=== PATIENT | female | born 1995 | race Caucasian/White ===

== ENCOUNTER 2016-04-13 05:00 | Inpatient (IN) | payer MEDICAID ==
[~2016-04-13] VITALS: Ht 170.2 cm; Wt 95.7 kg
[2016-04-13] VITALS (14 sets, daily range): BP systolic 99–124; RESP 16; TEMP 97.5; Ht 170.2 cm; Wt 95.7 kg
[2016-04-13] MEDS ORDERED: BUTORPHANOL 1 MG/ML VIAL IV ONE (05:45)
[2016-04-13] MEDS ORDERED: OXYTOCIN 15 UNITS/250 ML NS 250 ML IV SCH ×2 (05:45→12:25)
[2016-04-13] MEDS ORDERED: CEFAZOLIN (LD/OB) 100 ML IV PRN (05:45)
[2016-04-13] MEDS ORDERED: FAMOTIDINE 20 MG INJ IV PRN (05:45)
[2016-04-13] MEDS ORDERED: ONDANSETRON 4 MG VIAL IV PRN (05:45)
[2016-04-13] MEDS ORDERED: TERBUTALINE 1 MG/ML VIAL SUBQ PRN (05:45)
[2016-04-13] MEDS ORDERED: METOCLOPRAMIDE 10 MG/2 ML VIAL IV PUSH PRN (05:45)
[2016-04-13] MEDS ORDERED: Flu Vaccine Quadrivalent 60 MCG/0.5 ML IM.VACC ONE (05:45)
[2016-04-13] MEDS ORDERED: ACETAMINOPHEN 325 MG TAB PO PRN (05:45)
[2016-04-13] MEDS ORDERED: PROMETHAZINE 25 MG/ML VIAL IV PRN (05:45)
[2016-04-13] MEDS ORDERED: LIDOCAINE 1% 30 ML PF INFILTRATE ONE (05:45)
[2016-04-13] MEDS ORDERED: ALU/MAG/SIM 30 ML UDC PO PRN (05:45)
[2016-04-13] MEDS ORDERED: FAMOTIDINE 20 MG TAB PO PRN (05:45)
[2016-04-13] MEDS: LACT RINGERS 1,000 ML IV SCH ×2 (06:32→08:26)
[2016-04-13] MEDS ORDERED: ROPIV/FENT 0.2%-2MCG/ML 100 ML EPIDURAL ONE (07:58)
[2016-04-13] MEDS ORDERED: FENTANYL 100 MCG/2 ML AMP ONE (07:59)
[2016-04-13] MEDS ORDERED: ROPIV/FENT 0.2%-2MCG/ML 100 ML EPIDURAL SCH (08:20)
[2016-04-13] MEDS ORDERED: FENTANYL 100 MCG/2 ML AMP EPIDURAL ONE (08:20)
[2016-04-13] MEDS ORDERED: LACT RINGERS 500 ML IV ONE (08:20)
[2016-04-13] MEDS ORDERED: LACT RINGERS 500 ML IV PRN (08:20)
[2016-04-13] MEDS ORDERED: SODIUM CHLORIDE 0.9% 500 ML IV PRN (08:20)
[2016-04-13] MEDS ORDERED: DERMOPLAST SPRAY TOPICAL PRN (12:25)
[2016-04-13] MEDS ORDERED: ZOLPIDEM 5 MG TAB PO PRN (12:25)
[2016-04-13] MEDS ORDERED: MISOPROSTOL 200 MCG TAB RECTAL ONE ×2 (12:25→15:20)
[2016-04-13] MEDS ORDERED: ASTRINGENT MED PADS 40'S TOPICAL PRN (12:25)
[2016-04-13] MEDS ORDERED: MAG HYDROX 30 ML UDC PO PRN (12:25)
[2016-04-13] MEDS ORDERED: SODIUM CHLORIDE 0.9% FLUSH BAG 500 ML IV PRN (12:25)
[2016-04-13] MEDS ORDERED: SALINE FLUSH 10 ML FLUSH PRN (12:25)
[2016-04-13] MEDS ORDERED: MEASLES,MUMPS,RUBELLA VAC SUBQ.VACC ONE (12:25)
[2016-04-13] MEDS ORDERED: TDaP 0.5 ML VIAL IM.VACC ONE (12:25)
[2016-04-13] MEDS ORDERED: MISOPROSTOL 100 MCG TAB ONE ×3 (12:33→14:27)
[2016-04-13] MEDS ORDERED: CARBOPROST 250 MCG/ML AMP ONE (14:27)
[2016-04-13] MEDS ORDERED: METHYLERGONOVINE MAL 0.2 MG/ML AMP ONE (14:27)
[2016-04-13] MEDS ORDERED: OXYTOCIN 10 UNITS/ML VIAL ONE (14:33)
[2016-04-13] MEDS ORDERED: OXYTOCIN IV SCH (15:20)
[2016-04-13] MEDS ORDERED: MISOPROSTOL 200 MCG TAB PO ONE (15:20)
[2016-04-13] MEDS ORDERED: METHYLERGONOVINE MAL 0.2 MG/ML AMP IM ONE (15:20)
[2016-04-13] MEDS ORDERED: SODIUM CHLORIDE 0.9% IV SCH (15:20)
[2016-04-13] MEDS ORDERED: CEFOXITIN 2,000 MG in SODIUM CHLORIDE 0.9% 100 ML IV ONE (15:20)
[2016-04-13] MEDS: Ibuprofen 800 MG TAB PO SCH ×2 (15:49→23:38)
[2016-04-13] MEDS ORDERED: OXYTOCIN IV ONE (16:00)
[2016-04-13] MEDS ORDERED: SODIUM CHLORIDE 0.9% IV ONE (16:00)
[2016-04-13] MEDS: METHYLERGONOVINE 0.2 MG TAB PO SCH ×2 (18:19→23:38)
[2016-04-13] MEDS: MISOPROSTOL 200 MCG TAB PO SCH ×2 (19:55→23:38)
[2016-04-13] MEDS ORDERED: **ONLY ANESTEHSIA MAY ORDER OPIATES WHILE ON EPIDURAL XX SCH (20:00)
[2016-04-13] MEDS: SALINE FLUSH 10 ML FLUSH SCH (20:17)
[2016-04-14 01:38] VITALS: BP_SYST 113; RESP 16; TEMP 97.7
[2016-04-14] MEDS: MISOPROSTOL 200 MCG TAB PO SCH (03:58)
[2016-04-14] MEDS: METHYLERGONOVINE 0.2 MG TAB PO SCH ×2 (05:45→12:03)
[2016-04-14 05:46] VITALS: BP_SYST 114; RESP 18; TEMP 98
[2016-04-14] MEDS: SALINE FLUSH 10 ML FLUSH SCH ×2 (08:00→19:26)
[2016-04-14 09:20] VITALS: BP_SYST 112
[2016-04-14 09:21] VITALS: RESP 24; TEMP 98.6
[2016-04-14] MEDS: DOCUSATE SOD 100 MG CAP PO SCH (09:22)
[2016-04-14] MEDS: Ibuprofen 800 MG TAB PO SCH ×3 (09:22→23:37)
[2016-04-14] MEDS ORDERED: TDaP 0.5 ML VIAL IM.VACC ONE (09:59)
[2016-04-14 17:37] VITALS: BP_SYST 107; TEMP 97.4
[2016-04-14 17:38] VITALS: RESP 20
[2016-04-15 05:30] VITALS: BP_SYST 100; RESP 16; TEMP 98.4
[2016-04-15] MEDS: SALINE FLUSH 10 ML FLUSH SCH (07:25)
[2016-04-15] MEDS: Ibuprofen 800 MG TAB PO SCH (08:07)
[2016-04-15 09:16] VITALS: BP_SYST 115
[2016-04-15 09:17] VITALS: RESP 20; TEMP 97.2
[2016-04-15] MEDS: DOCUSATE SOD 100 MG CAP PO SCH (10:52)
[2016-04-15 11:33] VITALS: BP_SYST 115; RESP 20; TEMP 97.2
[2016-04-15 14:00] VITALS: BP_SYST 110; RESP 18; TEMP 98.3
== END 2016-04-15 14:17 | disposition home or self-care (01) | DRG 774 ==
LOC: LDOP 05:00 → LD 05:57 → OB 20:20
PROVIDERS: ADMIT Obstetrics & Gynecology Reproductive Endocrinology; ATTEND Obstetrics & Gynecology
PROC: 10E0XZZ Delivery of Products of Conception, External Approach (ICD-10-PCS; principal; 2016-04-13)
PROC: 10907ZC Drainage of Amniotic Fluid, Therapeutic from Products of Conception, Via Natural or Artificial Opening (ICD-10-PCS; 2016-04-13)
CPT/HCPCS: 82803; 85025; 86850; 86900; 86901; 90471; 96372